=== PATIENT | female | born 1990 ===

== ENCOUNTER 2016-10-19 03:18 | Emergency (ER) | payer OTHER ==
[2016-10-19 03:37] VITALS: BP 145/78; PULSE 101; RESP 18; TEMP 98.5; O2SAT 99
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
== END 2016-10-19 06:08 | disposition home or self-care (01) ==
LOC: H.ER 03:18
DX: S82.831A Other fracture of upper and lower end of right fibula, initial encounter for closed fracture (principal); W10.9XXA Fall (on) (from) unspecified stairs and steps, initial encounter; Y04.0XXA Assault by unarmed brawl or fight, initial encounter

== ENCOUNTER 2016-10-31 10:40 | Day surgery (SDC) | payer OTHER ==
[2016-10-24 11:55] VITALS: BMI 31.1
[2016-10-31] MEDS ORDERED: Lidocaine 2% PF (10 ml) Amp ONE (12:47)
[2016-10-31] MEDS ORDERED: Lactated Ringer's 1,000 ML IV ONE (12:55)
[2016-10-31] MEDS ORDERED: Neostigmine Methylsulfate 2 MG/2 ML ML IV ONE (14:18)
[2016-10-31] MEDS ORDERED: Propofol 10 mg/ml Inj (20 ML) ONE ×2 (14:49→15:03)
[2016-10-31] MEDS ORDERED: Albuterol HFA 90 mcg/actuation (8 g) ONE (15:06)
[2016-10-31] MEDS ORDERED: HYDROmorphone 0.5 mg/0.5 ml ISec ONE (15:56)
--- NOTE | 2016-11-01 10:12 | RAD ---
PROCEDURE: Right tibia and fibula HISTORY: Status post open reduction internal fixation distal fibular fracture COMPARISON: Preoperative study 10/19/2016 TECHNIQUE: Portable examination 15:40. FINDINGS: Satisfactory position in anatomic alignment of major fracture fragments distal right fibula. Endplate and multiple partially fenestrated screws traverse the fracture. IMPRESSION: Satisfactory postoperative status.
--- NOTE | 2016-11-01 13:04 | PCM.ANESB2 ---
Popliteal Nerve Block - Popliteal Nerve Block Date of Procedure: 10/31/16 Anesthesiologist: Allen Escobedo Pre-Procedure Diagnosis: R ankle fracture Procedure Performed: Popliteal Nerve Block Right - Procedure Popliteal Nerve Block: This procedure was explained to the patient that it is for post-operative pain management. Consent was obtained after a thorough discussion with the patient regarding the benefits and possible complications of local anesthetic block of the sciatic nerve at the popliteal level. The patient was brought to the operating room and standard monitors are applied. Time-out was held with the circulating nurse to confirm the correct surgery and the appropriate block. After applying oxygen by nasal cannula and administering IV Sedation, patient's operative leg was gently raised and supported and the groove in between the biceps femoris and vastus lateralis muscles was carefully palpated. The skin approximately 8cm above the popliteal crease was then marked. The ultrasound transducer was then applied to the posterior thigh approximately 8cm above the popliteal crease in the transverse plane and the sciatic nerve before its division was visualized lateral to the popliteal artery and in between the bicep femoris and semimembranosus/semitendinosus muscles. After identification, the lateral portion of the thigh was prepped with Betadine solution three times and Lidocaine 1% was injected subcutaneously for topical anesthesia. At this point, a # 21 gauge Stimuplex insulated 4 inch needle was inserted into pre-marked area and advanced in a perpendicular direction. The needle was inserted above the ultrasound transducer in-plane towards the sciatic nerve in a [id number] direction. Needle advancement was performed carefully under direct ultrasound visualization. Nerve stimulator was used and dorsiflexion of the _right foot was elicited at a current of _0.4 MA. After repeated negative aspiration, _10cc of _0.5 % _bupivacaine was injected and this was followed with 10 cc of 2% lidocaine. Under ultrasound guidance the local anesthetics were observed tenting the epidural sheath and surrounding the roots of the sciatic nerve. The needle was removed intact and sterile dressing was applied. The patient tolerated the popliteal nerve block well with stable vital signs and was subsequently prepared for the surgery.
--- NOTE | 2016-11-01 14:19 | RAD ---
PROCEDURE: Fluoroscopy up to 1 hr. HISTORY: COMPARISON: None TECHNIQUE: Standard protocol for this study/examination. FINDINGS: Submitted images from the current procedure: 3.0 IMPRESSION: Total fluoroscopic time (continuous mode) utilized during the procedure: 2.9 seconds.
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
== END 2016-10-31 18:35 | disposition home or self-care (01) ==
LOC: H.OPSURG 10:40
PROVIDERS: ATTEND Podiatrist
DX: S82.891A Other fracture of right lower leg, initial encounter for closed fracture (principal); X58.XXXA Exposure to other specified factors, initial encounter; E66.9 Obesity, unspecified